=== PATIENT | female | born 1965 | race Caucasian/White ===

== ENCOUNTER 2016-12-03 13:39 | Emergency (ER) | payer SELFPAY ==
[~2016-12-03] VITALS: Ht 154.9 cm; Wt 70.0 kg
[2016-12-03 13:43] VITALS: Ht 154.9 cm; Wt 70.0 kg
[2016-12-03] MEDS ORDERED: SPECIAL NON-STANDARD MEDICATION IM ONE ×2 (14:30)
[2016-12-03] MEDS: RABIES IMMUNE GLOBULIN/PF 150 UNIT/ML VIAL IM SCH ×2 (16:00→16:36)
[2016-12-03] MEDS ORDERED: RABIES IMMUNE GLOBULIN/PF 150 UNIT/ML VIAL IM SCH ×2 (16:00)
[2016-12-03] MEDS ORDERED: RABIES VACCINE (PCEC)/PF 2.5 UNIT VIAL IM SCH (16:00)
[2016-12-03 17:10] VITALS: BP 127/29; PULSE 65; RESP 20; TEMP 98.2
--- NOTE | 2016-12-03 17:59 | ERD ---
ER Documentation Chief Complaint Date/Time DATE: 12/03/16 TIME: 17:52 Chief Complaint wants rabies shot, had dog bite HPI This patient is a 51-year-old female with no significant medical history presenting to the emergency department requesting the rabies vaccination and immunoglobulin. The patient was never previously immunized. The patient states the bite occurred to her right forearm earlier today by what she believes was a pit bull breed medium sized dog. The patient believes that the dog belonged to one of her neighbors but it did not have a collar so she was suspicious as to its origin and medical history. The attack on the patient was not preceded by violence. It was otherwise unprovoked. Patient has taken no medications for relief of symptoms. The patient copiously irrigated the wound immediately after it occurred with soap and water. The patient did file a report with animal protective services in [place]. The patient also filed a police report. The patient went to [facility] earlier today after the accident occurred where she was prescribed Augmentin and told to come here for the rabies vaccination and immunoglobulin if she did indeed feel it was necessary. The patient has had no fevers, chills, significant redness, swelling, or other significant symptoms. ROS All systems reviewed and are negative except as per history of present illness. Allergies Allergies: Coded Allergies: No Known Allergy (Unverified , 12/03/16) PMhx/Soc Medical and Surgical Hx: pt denies Medical Hx, pt denies Surgical Hx Hx Alcohol Use: No Hx Substance Use: No Hx Tobacco Use: No FmHx Noncontributory for chief complaint. Physical Exam Vitals Vital Signs Date Time Temp Pulse Resp B/P Pulse Ox O2 Delivery O2 Flow Rate FiO2 12/03/16 17:10 98.2 65 20 127/29 100 Room Air 12/03/16 13:43 98.1 95 20 123/66 99 Physical Exam Const: The patient is resting comfortably in no acute distress. Head: Atraumatic Eyes: Normal Conjunctiva ENT: Normal External Ears, Nose and Mouth. Neck: Full range of motion..~ No meningismus. Resp: Clear to auscultation bilaterally Cardio: Regular rate and rhythm, no murmurs Abd: Soft, non tender, non distended. Normal bowel sounds Skin: No petechiae or rashes Back: No midline or flank tenderness Ext: No cyanosis, or edema. The patient has 3 puncture wounds which appear to have started with routine healing to the right upper extremity. There is no warmth, erythema, or discharge noted. The patient is neurovascularly intact distally. The patient has intact strength and sensation to bilateral upper and lower extremities. Neur: Awake and alert Psych: Normal Mood and Affect Results 24 hrs Current Medications Medications (Trade) Dose Ordered Sig/Ralph Route PRN Reason Start Time Stop Time Status Last Admin Dose Admin Non-Formulary Medication 1 ea ONCE ONCE IM 12/03/16 14:30 12/03/16 14:31 DC Non-Formulary Medication 140 ea ONCE ONCE IM 12/03/16 14:30 12/03/16 14:32 DC Rabies Immune Globulin (Hyperrab S-D Vial) 140 unit ONCE IM 12/03/16 16:00 12/03/16 16:00 DC Rabies Immune Globulin (Hyperrab S-D Vial) 1,400 unit ONCE IM 12/03/16 16:00 12/03/16 16:00 DC Rabies Vaccine Chick Emryo Cell (Rabavert Rabies Vaccine Kit) 2.5 unit ONCE IM 12/03/16 16:00 12/03/16 17:11 DC 12/03/16 16:39 Rabies Immune Globulin (Hyperrab S-D Vial) 1,200 unit ONCE IM 12/03/16 16:00 12/03/16 17:11 DC Procedures/MDM 51-year-old female presents requesting the rabies immunoglobulin and vaccination. The patient visited [facility] earlier where she was told to come here if she indeed wanted the vaccinations. They did not have these at [facility]. After long discussion with the patient and Dr. Blake Rodriguez, we do not feel that the rabies immunoglobulin benefits outweighed the risks. There was no specific indication for the immunoglobulin due to the attacking animal being a part of the community. There was an animal protective services report filed and the patient was advised to follow-up closely with this. The patient was still in the N given the option to receive both the rabies vaccination and immunoglobulin but she decided to receive the vaccination only. The patient was explicitly advised to have close follow-up to the emergency department and with her primary care physician. The patient should return here immediately for any new or worsening symptoms. At this time I have low suspicion for rabies infection, cellulitis, septicemia, or other emergent conditions. Dr. Blake Rodriguez helped to guide the ED course of this patient. The patient was hemodynamically stable prior to discharge. The patient received IM tetanus vaccination in the emergency department. Departure Diagnosis: Primary Impression: Encounter for administration of vaccine Condition: Fair Patient Instructions: Rabies Vaccine (Christopher) Suspension for injection Referrals: COMMUNITY CLINICS YOU HAVE RECEIVED A MEDICAL SCREENING EXAM AND THE RESULTS INDICATE THAT YOU DO NOT HAVE A CONDITION THAT REQUIRES URGENT TREATMENT IN THE EMERGENCY DEPARTMENT. FURTHER EVALUATION AND TREATMENT OF YOUR CONDITION CAN WAIT UNTIL YOU ARE SEEN IN YOUR DOCTORS OFFICE WITHIN THE NEXT 1-2 DAYS. IT IS YOUR RESPONSIBILITY TO MAKE AN APPOINTMENT FOR FOLOW-UP CARE. IF YOU HAVE A PRIMARY DOCTOR --you should call your primary doctor and schedule an appointment IF YOU DO NOT HAVE A PRIMARY DOCTOR YOU CAN CALL OUR PHYSICIAN REFERRAL HOTLINE AT IF YOU CAN NOT AFFORD TO SEE A PHYSICIAN YOU CAN CHOSE FROM THE FOLLOWING [facility] [address] [facility] [address] [facility] [facility] [address] [facility] [address] [facility] [address] [facility] [address] [facility]. [address] Additional Instructions: Follow up with your PCP within the next 1-3 days for a more thorough evaluation and a possible referral to a specialist. Return the the emergency department immediately if symptoms worsen or change. If you have any questions regarding medications, ask your pharmacist or us before you leave. If any adverse reactions, occur while taking your medications, discontinue the treatment and return to the emergency department immediately. If any new or worsening symptoms, uncontrolled fevers, or other unexplained symptoms occur, return to the emergency department immediately. Take your medications as directed, and complete the entire course of treatment. GUERRERO AVINA PA-C Dec 03, 2016 17:59
== END 2016-12-03 17:11 | disposition home or self-care (01) ==
LOC: FTE 13:39
DX: Z23 Encounter for immunization (principal)
CPT/HCPCS: 90375; 90471; 90675